=== PATIENT | female | born 1935 | race Caucasian/White ===

== ENCOUNTER → 2017-07-16 | Outpatient (CLI) | payer MEDICARE ==
--- NOTE | 2017-07-16 13:02 | RAD ---
Right forearm 2 views. History: Mid radius pain 3 views were taken of the right forearm. There is a healing nondisplaced fracture of the ulna with mild callus formation. There is no radius fracture noted. No other acute osseous abnormality is noted. Impression: 1. Healing nondisplaced fracture of the distal third of the ulna.
== END | disposition home or self-care (01) ==
LOC: RAD 12:39
PROVIDERS: ATTEND Family Medicine
DX: S52.601A Unspecified fracture of lower end of right ulna, initial encounter for closed fracture (principal); X58.XXXA Exposure to other specified factors, initial encounter; Y93.89 Activity, other specified; Y92.89 Other specified places as the place of occurrence of the external cause; Y99.8 Other external cause status
CPT/HCPCS: 73090

== ENCOUNTER 2018-05-28 16:34 | Emergency (ER) | payer MEDICARE ==
[~2018-05-28] VITALS: Ht 170.2 cm; Wt 55.3 kg
[2018-05-28] MEDS ORDERED: PANTOPRAZOLE IV PUSH 40 MG VIAL. IVP ONE (16:45)
[2018-05-28] MEDS ORDERED: ONDANSETRON PF 4 MG/2 ML VIAL. IV ONE (16:45)
[2018-05-28] MEDS ORDERED: IV NORMAL SALINE 1000ML BAG 1,000 ML IV ONE (16:45)
[2018-05-28 16:48] LABS: BILIRUBIN,URINE NEGATIVE (NEG); CLARITY,URINE CLEAR; NITRITE,URINE POSITIVE (NEG); PH,URINE 5.5; PROTEIN,URINE NEGATIVE (NEG-TRACE)
[2018-05-28 16:53] LABS: COLOR,URINE ORANGE
[2018-05-28 16:56] LABS: BACTERIA,URINE MODERATE /HPF (0-FEW); RBC,URINE RARE /HPF (0-2); SQUAMOUS EPITHELIAL CELL,UR MOD /LPF; WBC,URINE 20-40 /HPF (0-4)
--- NOTE | 2018-05-28 17:06 | PHYS DOC ---
Adult General HPI HPI Patient is a 82 year old female who presents with mild intermittent episodes of lower abdominal pain with nausea that began today. Patient states she is constipated since yesterday. Patient states she took some pink pills (likely docusate) for constipation as well as Imodium. On arrival to the ED she was in the bathroom. As we did the physical exam she wanted to leave and go to the bathroom again. She has had two BM's so far and feels better. Family states patient has history of colitis, constipation with small bowel obstruction and abdominal surgery years ago. Review of Systems Review of Systems Constitutional: Denies fever or chills [] Eyes: Denies change in visual acuity, redness, or eye pain [] HENT: Denies nasal congestion or sore throat [] Respiratory: Denies cough or shortness of breath [] Cardiovascular: No additional information not addressed in HPI [] GI: Reports abdominal pain, reports constipation, reports nausea. Denies vomiting, bloody stools or diarrhea [] : Denies dysuria or hematuria [] Musculoskeletal: Denies back pain or joint pain [] Integument: Denies rash or skin lesions [] Neurologic: Denies headache, focal weakness or sensory changes [] All other systems were reviewed and found to be within normal limits, except as documented in this note. Current Medications Current Medications Current Medications Medications (Trade) Dose Ordered Sig/Justin Start Time Stop Time Status Last Admin Dose Admin Ondansetron HCl (Zofran) 4 mg 1X ONCE 05/28/18 16:45 05/28/18 17:35 DC 05/28/18 18:09 4 MG Pantoprazole Sodium (PROTONIX VIAL for IV PUSH) 40 mg 1X ONCE 05/28/18 16:45 05/28/18 17:35 DC 05/28/18 18:11 40 MG Sodium Chloride 1,000 ml @ 1,000 mls/hr 1X ONCE 05/28/18 16:45 05/28/18 17:44 DC 05/28/18 18:10 1,000 MLS/HR Allergies Allergies Allergies Coded Allergies Type Severity Reaction Last Updated Verified No Known Drug Allergies 05/28/18 No Physical Exam Physical Exam Constitutional: Well developed, well nourished, no acute distress, non-toxic appearance. [] HENT: Normocephalic, atraumatic, bilateral external ears normal, oropharynx moist, no oral exudates, nose normal. [] Eyes: PERRLA, EOMI, conjunctiva normal, no discharge. [] Neck: Normal range of motion, no tenderness, supple, no stridor. [] Cardiovascular:Heart rate regular rhythm, no murmur [] Lungs & Thorax: Bilateral breath sounds clear to auscultation [] Abdomen: Old healed surgical incision noted midline abdomen. Bowel sounds normal , soft, no tenderness, no masses, no pulsatile masses. [] Slight tenderness diffusely on palpation of the lower abdomen. rectal exam-external rectal area with no obvious lesions, trace hemorrhoids, internal rectal area with no palpable masses, no hemorrhoids. No palpable stool. Skin: Warm, dry, no erythema, no rash. [] Back: No tenderness, no CVA tenderness. [] Extremities: No tenderness, no cyanosis, no clubbing, ROM intact, no edema. [] Neurologic: Alert and oriented X 3, normal motor function, normal sensory function, no focal deficits noted. [] Psychologic: Affect normal, judgement normal, mood normal. [] Current Patient Data Lab Values Laboratory Tests Test 05/28/18 16:38 05/28/18 17:15 05/28/18 18:00 05/28/18 18:28 Urine Color [place] Urine Clarity Clear Urine pH 5.5 Urine Specific [place] 1.010 Urine Protein Negative mg/dL (NEG-TRACE) Urine Glucose (UA) Negative mg/dL (NEG) Urine Ketones (Stick) Negative mg/dL (NEG) Urine Blood Negative (NEG) Urine Nitrite Positive (NEG) Urine Bilirubin Negative (NEG) Urine Urobilinogen Dipstick 1.0 mg/dL (0.2 mg/dL) Urine Leukocyte Esterase Large (NEG) Urine RBC Rare /HPF (0-2) Urine WBC 20-40 /HPF (0-4) Urine Squamous Epithelial Cells Mod /LPF Urine Bacteria Moderate /HPF (0-FEW) Urine Mucus Slight /LPF Stool Occult Blood Positive (NEG) White Blood Count 11.5 x10^3/uL (4.0-11.0) H Red Blood Count 3.97 x10^6/uL (3.50-5.40) Hemoglobin 12.7 g/dL (12.0-15.5) Hematocrit 37.7 % (36.0-47.0) Mean Corpuscular Volume 95 fL (79-100) Mean Corpuscular Hemoglobin 32 pg (25-35) Mean Corpuscular Hemoglobin Concent 34 g/dL (31-37) Red Cell Distribution Width 14.3 % (11.5-14.5) Platelet Count 309 x10^3/uL (140-400) Neutrophils (%) (Auto) 87 % (31-73) H Lymphocytes (%) (Auto) 5 % (24-48) L Monocytes (%) (Auto) 7 % (0-9) Eosinophils (%) (Auto) 1 % (0-3) Basophils (%) (Auto) 0 % (0-3) Neutrophils # (Auto) 10.0 x10^3uL (1.8-7.7) H Lymphocytes # (Auto) 0.6 x10^3/uL (1.0-4.8) L Monocytes # (Auto) 0.8 x10^3/uL (0.0-1.1) Eosinophils # (Auto) 0.1 x10^3/uL (0.0-0.7) Basophils # (Auto) 0.0 x10^3/uL (0.0-0.2) Segmented Neutrophils % 88 % (35-66) H Lymphocytes % 5 % (24-48) L Monocytes % 6 % (0-10) Eosinophils % 1 % (0-5) Platelet Estimate Adequate (ADEQUATE) Sodium Level 134 mmol/L (136-145) L Potassium Level 3.7 mmol/L (3.5-5.1) Chloride Level 100 mmol/L (98-107) Carbon Dioxide Level 24 mmol/L (21-32) Anion Gap 10 (6-14) Blood Urea Nitrogen 15 mg/dL (7-20) Creatinine 1.0 mg/dL (0.6-1.0) Estimated GFR (Cockcroft-Gault) 52.8 BUN/Creatinine Ratio 15 (6-20) Glucose Level 116 mg/dL (70-99) H Calcium Level 8.4 mg/dL (8.5-10.1) L Total Bilirubin 0.2 mg/dL (0.2-1.0) Aspartate Amino Transferase (AST) 14 U/L (15-37) L Alanine Aminotransferase (ALT) 10 U/L (14-59) L Alkaline Phosphatase 56 U/L (46-116) Total Protein 6.4 g/dL (6.4-8.2) Albumin 3.1 g/dL (3.4-5.0) L Albumin/Globulin Ratio 0.9 (1.0-1.7) L Lipase 124 U/L (73-393) Laboratory Tests 05/28/18 18:00 Laboratory Tests 05/28/18 18:28 EKG EKG [] Radiology/Procedures Radiology/Procedures [] Course & Med Decision Making Course & Med Decision Making Pertinent Labs and Imaging studies reviewed. (See chart for details) This is a 82-year-old female patient presenting to the ED today with complaints of lower abdominal pain as well as constipation. Constipation began yesterday, abdominal pain today, patient arrives in the ED via EMS and went to the bathroom as soon as she was put in the room. She had a bowel movement, I went to see patient for physical exam, she went back to the bathroom and had another bowel movement. 17:15 rectal exam was done Patient has had 2 bowel movements in the ED, she states she is feeling better. 17:30 Care transferred to [facility] PROCEDURE: ACUTE ABDOMEN SERIES Acute abdominal series: Reason for examination low abdominal pain for one day. The heart size is normal. Mediastinum is unremarkable. Lung telles show some mild interstitial type infiltrates in the right upper and lower lung field. There are some linear density suggesting scarring or linear atelectasis at the mid left lung field. No acute bony abnormalities are evident. There is no gross organomegaly. Psoas muscles are symmetric. The bowel gas pattern is nonspecific with no dilated loops of bowel or bowel obstruction evident. Calcification consistent with a phlebolith is seen in the right pelvis. There is a mild rotatory scoliosis of the thoracolumbar spine. No acute bony abnormalities are seen. IMPRESSION: Interstitial changes in the medial right upper and right lower lung field. Linear density suggesting atelectasis or scarring at the mid left lung field. Nonspecific bowel gas pattern. Patient has had multiple bowel movements in the ED. States she is feeling much better. On reexamination, abdomen is soft nontender nondistended. No peritoneal signs. Patient tolerating by mouth. Will discharge with antibiotics to treat for urinary tract infection. Discussed symptomatic treatment at home. Discussed follow-up early this week and reasons to return to the ED. Patient understands and agrees with plan. Family at bedside. Dragon Disclaimer Dragon Disclaimer This electronic medical record was generated, in whole or in part, using a voice recognition dictation system. Departure Departure Impression: Primary Impression: Constipation Additional Impression: Urinary tract infection Disposition: HOME, SELF-CARE Condition: IMPROVED Referrals: RICK WAYNE MD (PCP) ELOISA DAS MD Patient Instructions: Constipation, Adult, Urinary Tract Infection Scripts Cephalexin (CEPHALEXIN) 500 Mg Tablet 1 TAB PO QID for 7 Days, #28 TAB Prov: SOHAIL MEZA 05/28/18 Problem Qualifiers Primary Impression: Constipation Constipation type: unspecified constipation type Qualified Codes: K59.00 - Constipation, unspecified LUCIANORAMONYAYA [employer] May 28, 2018 17:06 SOHAIL MEZA May 28, 2018 19:44
[2018-05-28 17:35] LABS: FECAL OB PT POSITIVE (NEG)
[2018-05-28 18:11] LABS: BASO % 0 % (0-3); EOS # 0.1 x10^3/uL (0.0-0.7); EOS % 1 % (0-3); HEMATOCRIT 37.7 % (36.0-47.0); HEMOGLOBIN 12.7 g/dL (12.0-15.5); LYMPH # 0.6 x10^3/uL (1.0-4.8); LYMPH % 5 % (24-48); MEAN CORPUSCULAR HEMOGLOBIN 32 pg (25-35); MEAN CORPUSCULAR HGB CONC 34 g/dL (31-37); MEAN CORPUSCULAR VOLUME 95 fL (79-100); MONO # 0.8 x10^3/uL (0.0-1.1); MONO % 7 % (0-9); NEUT % 87 % (31-73); PLATELET COUNT 309 x10^3/uL (140-400); RED BLOOD COUNT 3.97 x10^6/uL (3.50-5.40); RED CELL DISTRIBUTION WIDTH 14.3 % (11.5-14.5); WHITE BLOOD COUNT 11.5 x10^3/uL (4.0-11.0)
[2018-05-28 18:40] LABS: % EOS 1 % (0-5); % LYMPHS 5 % (24-48); % MONOS 6 % (0-10); % SEGS 88 % (35-66); PLT ESTIMATE ADEQUATE (ADEQUATE)
[2018-05-28 18:43] LABS: CALCIUM 8.4 mg/dL (8.5-10.1); GFR 52.8; POTASSIUM 3.7 mmol/L (3.5-5.1)
[2018-05-28 18:49] LABS: ALBUMIN 3.1 g/dL (3.4-5.0); ALBUMIN/GLOBULIN RATIO 0.9 (1.0-1.7); TOTAL BILIRUBIN 0.2 mg/dL (0.2-1.0); TOTAL PROTEIN 6.4 g/dL (6.4-8.2)
[2018-05-28 19:30] VITALS: BP 143/65
--- NOTE | 2018-05-28 19:36 | RAD ---
Acute abdominal series: Reason for examination low abdominal pain for one day. The heart size is normal. Mediastinum is unremarkable. Lung telles show some mild interstitial type infiltrates in the right upper and lower lung field. There are some linear density suggesting scarring or linear atelectasis at the mid left lung field. No acute bony abnormalities are evident. There is no gross organomegaly. Psoas muscles are symmetric. The bowel gas pattern is nonspecific with no dilated loops of bowel or bowel obstruction evident. Calcification consistent with a phlebolith is seen in the right pelvis. There is a mild rotatory scoliosis of the thoracolumbar spine. No acute bony abnormalities are seen. IMPRESSION: Interstitial changes in the medial right upper and right lower lung field. Linear density suggesting atelectasis or scarring at the mid left lung field. Nonspecific bowel gas pattern. Electronically signed by: Laura Méndez MD (05/28/2018 7:32 PM) [facility]
[2018-05-28] MEDS ORDERED: CEPH500T PO (19:44)
== END 2018-05-28 19:50 | disposition home or self-care (01) ==
LOC: ER 16:34
DX: N39.0 Urinary tract infection, site not specified (principal); K59.00 Constipation, unspecified
CPT/HCPCS: 36415; 74022; 80053; 81001; 82274; 83690; 85007; 85025; 87086; 87186; 96374; 96375; 99285; C9113; J2405; J7030